=== PATIENT | female | born 1980 | race African-American/Black ===

== ENCOUNTER 2018-07-31 22:34 | Emergency (ER) | payer MEDICAID, SELFPAY ==
--- NOTE | 2018-07-31 23:41 | RAD ---
PORTABLE AP CHEST X-RAY: 07/31/2018 HISTORY: Cough. COMPARISON: 08/30/2017 FINDINGS: The cardiac silhouette is magnified by projection but does appear at the upper limits of normal to steff rderline enlarged. The pulmonary vasculature is within normal limits. The lungs are clear. There h as been no interval change when compared to the prior study. IMPRESSION: No acute cardiopulmonary process. POS: [facility]
== END 2018-07-31 23:45 | disposition home or self-care (01) ==
LOC: ERS 22:34
DX: J20.9 Acute bronchitis, unspecified (principal); I10 Essential (primary) hypertension; F41.9 Anxiety disorder, unspecified; F31.9 Bipolar disorder, unspecified; F17.210 Nicotine dependence, cigarettes, uncomplicated
CPT/HCPCS: 71045; J7620

== ENCOUNTER 2018-10-19 13:32 | Observation (INO) | payer SELFPAY ==
[2018-10-19] MEDS ORDERED: Nitroglycerin 0.4 MG TAB 1 EACH ONE (14:08)
[2018-10-19 14:35] LABS: #Basophils 0.1 thou/uL (0.0-0.2); #Eosinphils 0.1 thou/uL (0.0-0.7); #Lymphocytes 2.7 thou/uL (1.20-3.40); #Monocytes 0.9 thou/uL (0.11-0.59); %Basophils 0.7 % (0.0-1.0); %Eosinophils 0.7 % (0.0-10.0); %Lymphocytes 27.7 % (21.0-51.0); %Monocytes 9.1 % (0.0-10.0); %Neutrophils 61.8 % (42.0-75.0); Hemoglobin 13.5 g/dL (12.0-16.0); Mean Corpuscular HGB CONC 31.9 g/dL (32.0-36.0); Mean Corpuscular Volume 93.9 fL (78.0-98.0); Mean Platelet Volume 8.1 fL (7.4-10.4); Platelet Count 338 thou/uL (130-400); RBC Distribution Width 15.6 % (11.5-14.5); White Blood Cell (WBC) Count 9.8 thou/uL (4.8-10.8)
[2018-10-19 14:41] LABS: BHCG - Serum Negative (NEGATIVE); Pregs Control Background? CLEAR/WHITE (CLR/WHITE); Pregs Control Bar Appear? YES (CONTROL BAR)
[2018-10-19 14:59] LABS: ALT (SGPT) 9 U/L (8-55); AST (SGOT) 13 U/L (5-34); Albumin 4.3 g/dL (3.5-5.0); Alkaline Phosphatase 117 U/L (40-150); Anion Gap 17 mmol/L (10-20); BUN (Urea Nitrogen) 11 mg/dL (7.0-18.7); Bilirubin, Total 0.5 mg/dL (0.2-1.2); Calc. Creatinine Clearance 0 mL/min (70-130); Calcium 10.2 mg/dL (7.8-10.44); Carbon Dioxide 24 mmol/L (22-29); Chloride 100 mmol/L (98-107); Estimated GFR-MDRD 77; Globulin 3.6 g/dL (2.4-3.5); Glucose 126 mg/dL (70-105); Protein, Total 7.9 g/dL (6.0-8.3); Sodium 138 mmol/L (136-145)
[2018-10-19 15:05] LABS: Potassium 2.9 mmol/L (3.5-5.1)
[2018-10-19] MEDS ORDERED: Potassium Chloride 20 MEQ TAB ONE (15:15)
[2018-10-19] MEDS ORDERED: Pantoprazole 40 MG VIAL ONE (15:27)
[2018-10-19] MEDS ORDERED: Ketorolac Tromethamine 30 MG/ML VIAL ONE (15:27)
--- NOTE | 2018-10-19 15:44 | RAD ---
PORTABLE CHEST: HISTORY: Chest pain. Syncope. COMPARISON: 07/31/2018 FINDINGS: Heart size is enlarged. Mediastinal structures appear unremarkable. Lungs are clear of infiltrates. No signs of failure. IMPRESSION: Cardiomegaly. POS: [facility]
[2018-10-19] MEDS ORDERED: hydrALAZINE 20 MG/ML VIAL ONE (16:28)
--- NOTE | 2018-10-19 18:05 | CT ---
CT HEAD WITHOUT CONTRAST: 10/19/18 Multiple axial tomograms obtained through the head without IV enhancement. INDICATIONS: Syncope. Ventricles are normal size and position. There is no evidence of intracranial mass or hemorrhage. No evidence of infarct or edema. Sinuses and mastoids are clear. IMPRESSION: No acute findings. POS: [facility]
[2018-10-19] MEDS ORDERED: Acetaminophen 500 MG TAB ONE (18:09)
[2018-10-19 18:14] LABS: Acetaminophen Less than 6.0 mcg/mL (10.0-30.0); Alcohol Less than 10 mg/dL (Less than 10); Salicylate Less than 8.0 mg/dL (15.0-30.0)
[2018-10-19 19:27] LABS: Amphetamine Not Detected (NotDetected); Barbiturates Screen Not Detected (NotDetected); Benzodiazepine Screen Not Detected (NotDetected); Cocaine Metabolite Screen Not Detected (NotDetected); Medtox Control Line Valid? VALID (VALID); Medtox Reader # READER 1; Methadone Not Detected (NotDetected); Methamphetamine Not Detected (NotDetected); Opiate Screen Not Detected (NotDetected); Oxycodone Screen Not Detected (NotDetected); Phencyclidine (PCP) Not Detected (NotDetected); THC/Cannabinoid Screen Not Detected (NotDetected); Tricyclic Screen Not Detected (NotDetected)
[2018-10-19] MEDS ORDERED: cloNIDine 0.1 MG TAB PO PRN (20:34)
[2018-10-19 20:50] LABS: Troponin I Less than 0.010 ng/mL (< 0.028)
[2018-10-19 21:06] VITALS: BMI 38.5
[2018-10-19] MEDS ORDERED: Acetaminophen 325 MG TAB PO PRN (21:28)
[2018-10-19] MEDS ORDERED: Ondansetron PF 4 MG/2 ML Vial IVP PRN (21:28)
[2018-10-19] MEDS ORDERED: Ondansetron ODT 4 MG TAB SL PRN (21:28)
[2018-10-20] MEDS ORDERED: Potassium Chloride 20 MEQ TAB PO SCH (01:45)
[2018-10-20 05:00] LABS: #Basophils 0.1 thou/uL (0.0-0.2); #Eosinphils 0.1 thou/uL (0.0-0.7); #Lymphocytes 2.9 thou/uL (1.20-3.40); #Monocytes 1.3 thou/uL (0.11-0.59); #Neutrophils 6.7 thou/uL (1.40-6.50); %Basophils 0.9 % (0.0-1.0); %Eosinophils 1.1 % (0.0-10.0); %Lymphocytes 25.7 % (21.0-51.0); %Monocytes 11.8 % (0.0-10.0); %Neutrophils 60.5 % (42.0-75.0); Hemoglobin 12.6 g/dL (12.0-16.0); Mean Corpuscular HGB CONC 31.1 g/dL (32.0-36.0); Mean Corpuscular Hemoglobin 29.2 pg (27.0-31.0); Mean Corpuscular Volume 93.8 fL (78.0-98.0); Platelet Count 359 thou/uL (130-400); RBC Distribution Width 15.6 % (11.5-14.5); Red Blood Cell (RBC) Count 4.31 mill/uL (4.20-5.40); White Blood Cell (WBC) Count 11.1 thou/uL (4.8-10.8)
[2018-10-20 05:18] LABS: Anion Gap 15 mmol/L (10-20); BUN (Urea Nitrogen) 12 mg/dL (7.0-18.7); Calc. Creatinine Clearance 136 mL/min (70-130); Carbon Dioxide 26 mmol/L (22-29); Chloride 102 mmol/L (98-107); Estimated GFR-MDRD Greater than 90; Glucose 106 mg/dL (70-105); Potassium 3.7 mmol/L (3.5-5.1); Sodium 139 mmol/L (136-145)
--- NOTE | 2018-10-20 06:01 | HP ---
PRIMARY CARE PHYSICIAN: The patient goes to [facility]. CODE STATUS: Full code. TIME OF EVALUATION: 9:30 p.m. CHIEF COMPLAINT: Chest pain. HISTORY OF PRESENT ILLNESS: This is a 38-year-old female patient with past medical history of chronic pain because of left leg osteoarthritis, and hypertension, came to the hospital after having an episode of syncope and fell the night prior to presentation to the hospital. She reported when she was walking around the house, also complained of chest pain with no clear triggers. No alleviating factors. Of note, the patient is not a good historian and it looks like the patient has a poor attention span. Symptoms have been present for couple of days. No clear triggers. No alleviating factors. It has been getting worse over time. REVIEW OF SYSTEMS: CONSTITUTIONAL: No fever, chills, or generalized weakness. RESPIRATORY: No cough, sputum production, or shortness of breath. CARDIOVASCULAR: She has chest pain. No palpitation. GASTROINTESTINAL: No nausea. No vomiting, diarrhea, or abdominal pain. TIRE MOLDER: No dizziness, headache, or feeling lightheaded. GENITOURINARY: No burning on urination. EXTREMITIES: No leg swelling. All other systems were reviewed and negative except for the findings mentioned above. PAST MEDICAL HISTORY: As mentioned in the HPI. PAST SURGICAL HISTORY: Positive for tubal ligation, appendectomy, and tonsillectomy. PSYCHIATRIC HISTORY: Includes anxiety and bipolar disorder. The patient has a history of previous admissions in the psych unit, follows outpatient with Psych. SOCIAL HISTORY: Light tobacco smoker. Drinks socially. No drug use. FAMILY HISTORY: Reviewed and noncontributory for current presentation. KNOWN ALLERGIES: No known drug allergies. REPORTED MEDICATIONS: Updated. PHYSICAL EXAMINATION: VITAL SIGNS: On presentation; blood pressure 177/111 with heart rate 92, respiratory rate was 16, temperature 98.7, and O2 saturation was 98%. GENERAL APPEARANCE: The patient is alert and oriented. Seems to have short attention span, not in acute distress. HEENT: Eyes, normal conjunctivae. Moist oral mucosa. Anicteric. NECK: No JVD. RESPIRATORY: Bilateral air entry. No rales. No wheezes. Symmetric expansion. CARDIOVASCULAR: Normal rate, regular rhythm. No murmurs. No gallop. No edema. ABDOMEN: Soft. Normal bowel sounds. MUSCULOSKELETAL: Baseline range of motion and strength. No tenderness. SKIN: Warm, intact. No pallor. No rash. No redness. Peripheral pulses are present. Capillary refill seems to be intact. NEURO: No evidence of any new focal weakness. Baseline speech. Cranial nerves seem to be intact. PSYCH: The patient is in good mood. No anxiety. Optimal judgment. DIAGNOSTIC STUDIES: CARDIOVASCULAR STUDIES: EKG was reviewed. The patient has normal sinus rhythm with a rate of with SD 144, QRS 88, QT corrected 409, possible left atrial enlargement, nonspecific T-wave abnormalities, prolonged QT. IMAGING STUDIES: Chest x-ray was reviewed. The patient has cardiomegaly. Brain CT was done, and the patient has no acute findings. LABORATORY RESULTS: Labs were reviewed. The patient has white count 9.8, hemoglobin 13.5, MCV 93.9, and platelet count 338. Sodium 138, potassium 2.9, chloride 100, carbon dioxide 24, anion gap 17, BUN 11, creatinine 0.98, GFR 77, and glucose 126. Troponins have been negative x3. Globulin 3.6 and albumin 4.3. Serum test was negative. Urine drug screen was negative. ASSESSMENT AND PLAN: The patient will be placed in the hospital with following medical problems: 1. Chest pain, rule out acute coronary syndrome. The patient has three troponins negative, presented with hypertensive urgency, probably also secondary to high blood pressure, we will treat the blood pressure first, might need a stress test in the morning. 2. Hypokalemia. Potassium is 2.9, we will replace electrolytes as needed. This is acute. 3. Hyperglycemia. Glucose 126. History of diabetes, could be secondary to acute physical distress or glucose intolerance. We will monitor, we will treat accordingly. No need for any acute intervention at this point. 4. History of chronic pain, we will treat as per patient's complaints of symptoms. 5. Hypertensive urgency. The patient presented with blood pressure in the high 190s and 200s, has improved after initial treatment. It looks like the patient is noncompliant with medications. We will continue to adjust medications. 6. Deep venous thrombosis prophylaxis. Job ID: [id number]
[2018-10-20 07:51] VITALS: BP 187/94; TEMP 98.1
[2018-10-20] MEDS ORDERED: Lisinopril 20 MG TAB PO SCH (09:00)
[2018-10-20] MEDS ORDERED: Enoxaparin Sodium 30 MG/0.3 ML SYRINGE SC SCH (09:00)
[2018-10-20] MEDS ORDERED: Hydrochlorothiazide 25 MG TAB PO SCH (09:00)
== END 2018-10-20 09:10 | disposition left against medical advice (07) ==
LOC: ERS 13:32 → 2SW 20:53
PROVIDERS: ADMIT Emergency Medicine; ATTEND Emergency Medicine
DX: R07.9 Chest pain, unspecified (principal); E87.6 Hypokalemia; E11.65 Type 2 diabetes mellitus with hyperglycemia; F31.9 Bipolar disorder, unspecified; F41.9 Anxiety disorder, unspecified; F17.200 Nicotine dependence, unspecified, uncomplicated; I10 Essential (primary) hypertension; R55 Syncope and collapse; I16.0 Hypertensive urgency; M19.90 Unspecified osteoarthritis, unspecified site
CPT/HCPCS: 36415; 70450; 71045; 80048; 80053; 80306; 80307; 84484; 84703; 85025; 93005; 96374; 96375; 96376; C9113; G0378; J0360; J1885

== ENCOUNTER 2019-03-08 14:12 | Emergency (ER) | payer MEDICAID, SELFPAY ==
[2019-03-08 17:04] LABS: Bacteria/HPF None Seen HPF (None Seen); Bilirubin Negative (Negative); Blood, Urine 2+ (Negative); Clarity Clear (Clear); Glucose, Urine (Dipstick) Normal (Negative); Leukocyte Negative Leu/uL (Negative); Mucous/LPF 2+ LPF (<2+); Nitrite Negative (Negative); Protein, Urine (Dipstick) 10 mg/dL (Neg-Trace); RBC/HPF Greater than 50 HPF (0-3); Squamous Epithelial 0-3 HPF (0-3); Urobilinogen Normal mg/dL (Less than 2)
[2019-03-08 17:20] LABS: Pregnancy Test - Urine (BHCG) Negative (Negative); Pregu Control Background? CLEAR/WHITE (CLR/WHITE); Pregu Control Bar Appear? YES (CONTROL BAR); Specific Gravity 1.006 (1.002-1.036)
== END 2019-03-08 18:45 | disposition home or self-care (01) ==
LOC: ERS 14:12
DX: N93.9 Abnormal uterine and vaginal bleeding, unspecified (principal); Z71.6 Tobacco abuse counseling; F41.9 Anxiety disorder, unspecified; F31.9 Bipolar disorder, unspecified; F17.200 Nicotine dependence, unspecified, uncomplicated
CPT/HCPCS: 81003; 81015; 81025; 99406

== ENCOUNTER 2019-04-20 14:00 | Emergency (ER) | payer MEDICAID ==
[2019-04-20 15:05] LABS: #Basophils 0.1 thou/uL (0.0-0.2); #Eosinphils 0.2 thou/uL (0.0-0.7); #Lymphocytes 3.4 thou/uL (1.20-3.40); #Monocytes 0.8 thou/uL (0.11-0.59); #Neutrophils 4.6 thou/uL (1.40-6.50); %Basophils 0.8 % (0.0-1.0); %Eosinophils 2.3 % (0.0-10.0); %Lymphocytes 37.6 % (21.0-51.0); %Monocytes 9.2 % (0.0-10.0); %Neutrophils 50.1 % (42.0-75.0); Hemoglobin 12.4 g/dL (12.0-16.0); Mean Corpuscular HGB CONC 33.3 g/dL (32.0-36.0); Mean Corpuscular Hemoglobin 31.1 pg (27.0-31.0); Mean Corpuscular Volume 93.2 fL (78.0-98.0); Mean Platelet Volume 7.7 fL (7.4-10.4); Platelet Count 309 thou/uL (130-400); RBC Distribution Width 14.2 % (11.5-14.5); Red Blood Cell (RBC) Count 3.99 mill/uL (4.20-5.40); White Blood Cell (WBC) Count 9.2 thou/uL (4.8-10.8)
[2019-04-20 15:53] LABS: BHCG - Serum Negative (NEGATIVE); Pregs Control Background? CLEAR/WHITE (CLR/WHITE); Pregs Control Bar Appear? YES (CONTROL BAR)
== END 2019-04-20 16:14 | disposition home or self-care (01) ==
LOC: ERS 14:00
DX: K43.9 Ventral hernia without obstruction or gangrene (principal); N93.9 Abnormal uterine and vaginal bleeding, unspecified; M19.90 Unspecified osteoarthritis, unspecified site; I10 Essential (primary) hypertension; F31.9 Bipolar disorder, unspecified; F41.9 Anxiety disorder, unspecified; F17.210 Nicotine dependence, cigarettes, uncomplicated
CPT/HCPCS: 36415; 84703; 85025; 99284

== ENCOUNTER 2019-06-14 10:16 | Emergency (ER) | payer MEDICAID ==
[2019-06-14] MEDS ORDERED: Acetaminophen 500 MG TAB ONE (10:42)
== END 2019-06-14 10:43 | disposition home or self-care (01) ==
LOC: ERS 10:16
DX: J06.9 Acute upper respiratory infection, unspecified (principal); I10 Essential (primary) hypertension; F41.9 Anxiety disorder, unspecified; F31.9 Bipolar disorder, unspecified; F17.210 Nicotine dependence, cigarettes, uncomplicated; M19.90 Unspecified osteoarthritis, unspecified site
CPT/HCPCS: 99283

== ENCOUNTER 2020-06-23 11:52 | Emergency (ER) | payer OTHER ==
[2020-06-23 13:17] LABS: Bacteria/HPF 1+ HPF (None Seen); Bilirubin Negative (Negative); Blood, Urine 3+ (Negative); Clarity Turbid (Clear); Glucose, Urine (Dipstick) Normal (Negative); Ketone, Urine Negative (Negative); Leukocyte 250 Leu/uL (Negative); Mucous/LPF Rare LPF (<2+); Nitrite Negative (Negative); Protein, Urine (Dipstick) 10 mg/dL (Neg-Trace); Specific Gravity, Urine 1.023 (1.002-1.036); Urobilinogen Normal mg/dL (Less than 2)
[2020-06-23] MEDS ORDERED: Azithromycin 250 MG TAB ONE (13:43)
[2020-06-23] MEDS ORDERED: cefTRIAXone\\ROCEPHIN 250 MG VIAL ONE (13:43)
[2020-06-23] MEDS ORDERED: Lidocaine 1% PF 5 ML VIAL ONE (13:44)
[2020-06-23 14:11] LABS: Pregu Control Background? CLEAR/WHITE (CLR/WHITE); Pregu Control Bar Appear? YES (CONTROL BAR); Specific Gravity 1.023 (1.002-1.036)
[2020-06-23 14:12] LABS: Pregnancy Test - Urine (BHCG) Negative (Negative)
[2020-06-25 20:10] LABS: Chlamydia by PCR Not Detected (NotDetected); GC by PCR Not Detected (NotDetected)
== END 2020-06-23 14:57 | disposition home or self-care (01) ==
LOC: ERS 11:52
DX: N76.0 Acute vaginitis (principal); M19.90 Unspecified osteoarthritis, unspecified site; I10 Essential (primary) hypertension; F41.9 Anxiety disorder, unspecified; F31.9 Bipolar disorder, unspecified
CPT/HCPCS: 81001; 81025; 87077; 87086; 87186; 87480; 87491; 87510; 87591; 87660; 96372; 99283; J0696

== ENCOUNTER 2020-07-28 10:23 | Emergency (ER) | payer OTHER | END 2020-07-28 10:54 | disposition left against medical advice (07) | LOC: ERS 10:23 | DX: Z53.21 Procedure and treatment not carried out due to patient leaving prior to being seen by health care provider (principal) ==

== ENCOUNTER 2020-09-02 11:34 | Emergency (ER) | payer OTHER ==
[2020-09-02 12:09] LABS: Bilirubin Negative (Negative); Blood, Urine Negative (Negative); Clarity Clear (Clear); Glucose, Urine (Dipstick) Normal (Negative); Ketone, Urine Negative (Negative); Leukocyte Negative Leu/uL (Negative); Nitrite Negative (Negative); Protein, Urine (Dipstick) Negative (Neg-Trace); Urobilinogen Normal mg/dL (Less than 2); pH, Urine 6.5 (5.0-9.0)
[2020-09-02 12:10] LABS: Pregnancy Test - Urine (BHCG) Negative (Negative); Pregu Control Background? CLEAR/WHITE (CLR/WHITE); Pregu Control Bar Appear? YES (CONTROL BAR)
== END 2020-09-02 12:55 | disposition home or self-care (01) ==
LOC: ERS 11:34
DX: Z71.1 Person with feared health complaint in whom no diagnosis is made (principal); F17.210 Nicotine dependence, cigarettes, uncomplicated
CPT/HCPCS: 81003; 81025; 99281

== ENCOUNTER 2020-09-14 11:36 | Emergency (ER) | payer OTHER ==
[2020-09-14] MEDS ORDERED: Ketorolac Tromethamine 30 MG/ML VIAL ONE (11:58)
[2020-09-14] MEDS ORDERED: Ondansetron PF 4 MG/2 ML Vial ONE (11:58)
[2020-09-14 12:01] LABS: Bilirubin Negative (Negative); Blood, Urine Negative (Negative); Clarity Clear (Clear); Glucose, Urine (Dipstick) Normal (Negative); Ketone, Urine Negative (Negative); Leukocyte Negative Leu/uL (Negative); Nitrite Negative (Negative); Protein, Urine (Dipstick) Negative (Neg-Trace); Specific Gravity, Urine 1.024 (1.002-1.036); Urobilinogen Normal mg/dL (Less than 2); pH, Urine 5.5 (5.0-9.0)
[2020-09-14 12:11] LABS: #Basophils 0.1 thou/uL (0.0-0.2); #Eosinphils 0.3 thou/uL (0.0-0.7); #Lymphocytes 3.7 thou/uL (1.20-3.40); #Monocytes 0.8 thou/uL (0.11-0.59); #Neutrophils 6.3 thou/uL (1.40-6.50); %Basophils 0.8 % (0.0-1.0); %Eosinophils 2.8 % (0.0-10.0); %Lymphocytes 32.9 % (21.0-51.0); %Monocytes 7.2 % (0.0-10.0); %Neutrophils 56.3 % (42.0-75.0); Hemoglobin 12.3 g/dL (12.0-16.0); Mean Corpuscular HGB CONC 32.1 g/dL (32.0-36.0); Mean Corpuscular Hemoglobin 30.5 pg (27.0-31.0); Mean Corpuscular Volume 95.1 fL (78.0-98.0); Platelet Count 379 thou/uL (130-400); RBC Distribution Width 14.6 % (11.5-14.5); Red Blood Cell (RBC) Count 4.04 mill/uL (4.20-5.40); White Blood Cell (WBC) Count 11.1 thou/uL (4.8-10.8)
[2020-09-14 12:31] LABS: BHCG - Serum Negative (NEGATIVE); Pregs Control Background? CLEAR/WHITE (CLR/WHITE); Pregs Control Bar Appear? YES (CONTROL BAR)
[2020-09-14 12:32] LABS: ALT (SGPT) 11 U/L (8-55); AST (SGOT) 14 U/L (5-34); Alkaline Phosphatase 129 U/L (40-110); Anion Gap 14 mmol/L (10-20); BUN (Urea Nitrogen) 12 mg/dL (7.0-18.7); Bilirubin, Total 0.2 mg/dL (0.2-1.2); Calc. Creatinine Clearance 0 mL/min (70-130); Calcium 9.4 mg/dL (7.8-10.44); Carbon Dioxide 26 mmol/L (22-29); Chloride 103 mmol/L (98-107); Globulin 3.7 g/dL (2.4-3.5); Glucose 129 mg/dL (70-105); Lipase 39 U/L (8-78); Potassium 4.1 mmol/L (3.5-5.1); Protein, Total 7.7 g/dL (6.0-8.3); Sodium 139 mmol/L (136-145)
--- NOTE | 2020-09-14 13:05 | CT ---
CT ABDOMEN AND PELVIS WITH IV CONTRAST: Date: 09/14/2020 PROVIDED CLINICAL HISTORY: Abdominal pain. FINDINGS: The visualized lung bases are free of significant opacity. The liver, spleen, pancreas, kidneys, and adrenal glands demonstrate an unremarkable CT appearance. T here is no bowel dilatation, inflammatory fat stranding, free fluid, or free air apparent. There is n o evidence for appendicitis. The osseous structures demonstrate no concerning lytic or blastic lesions. Regional major vascular st ructures appear unremarkable. IMPRESSION: No evidence for an acute process. POS: [facility]
== END 2020-09-14 13:33 | disposition home or self-care (01) ==
LOC: ERS 11:36
DX: R10.31 Right lower quadrant pain (principal); F17.210 Nicotine dependence, cigarettes, uncomplicated
CPT/HCPCS: 36415; 74177; 80053; 81003; 83690; 84703; 85025; 96374; 96375; J1885; J2405

== ENCOUNTER 2021-02-05 09:43 | Outpatient (CLI) | payer OTHER ==
[2021-02-05] MEDS ORDERED: Iopamidol 300 61% 50 ML VIAL FS ONE (14:13)
== END 2021-02-05 09:44 | disposition home or self-care (01) ==
LOC: RAD 09:43
PROVIDERS: ATTEND Obstetrics & Gynecology
DX: Z98.51 Tubal ligation status (principal); N97.1 Female infertility of tubal origin
CPT/HCPCS: 58340; 74740; 84703; Q9967

== ENCOUNTER 2023-12-30 05:35 | Emergency (ER) | payer OTHER | END 2023-12-30 07:25 | LOC: ERS 05:35 | DX: Z00.00 Encounter for general adult medical examination without abnormal findings (principal) | CPT/HCPCS: 99283 ==